=== PATIENT | female | born 1935 | race Caucasian/White ===

== ENCOUNTER 2016-11-09 12:09 | Inpatient (IN) | payer OTHER ==
[2016-11-09 16:08] LABS: % IMMATURE GRANULYOCYTES 0.2 % (0.0-1.1); ABSOLUTE IMMATURE GRANULOCYTES 0.02 10^3/uL (0.00-0.10); ADD DIFF? NO; ADD MORPH? NO; ADD SCAN? NO; ATYPICAL LYMPHOCYTE FLAG 10 (0-99); FRAGMENT RBC FLAG 0 (0-99); HEMATOCRIT 37.9 % (38.0-47.0); HEMOGLOBIN 13.3 g/dL (12.6-16.3); LEFT SHIFT FLG 0 (0-99); LIPEMIA HEMOLYSIS FLAG 90 (0-99); MEAN CELL HEMOGLOBIN 31.7 pg (27.9-34.1); MEAN CELL HEMOGLOBIN CONCENTR. 35.1 g/dL (32.4-36.7); MEAN CELL VOLUME 90.5 fL (81.5-99.8); MEAN PLATELET VOLUME 9.1 fL (8.7-11.7); PLATELET CLUMPS FLAG 40 (0-99); PLATELET COUNT 204 10^3/uL (150-400); RED BLOOD CELL COUNT 4.19 10^6/uL (4.18-5.33); RED CELL DISTRIBUTION WIDTH 12.7 % (11.5-15.2)
[2016-11-09 16:18] LABS: ALANINE AMINOTRANSFERASE 29 IU/L (9-52); ALBUMIN 4.1 g/dL (3.5-5.0); ALKALINE PHOSPHATASE 77 IU/L (38-126); ANION GAP 12 mEq/L (8-16); ASPARTATE AMINOTRANSFERASE 26 IU/L (14-46); BILIRUBIN,TOTAL 0.8 mg/dL (0.1-1.4); CALCIUM 9.1 mg/dL (8.5-10.4); CARBON DIOXIDE 19 mEq/l (22-31); CHLORIDE 97 mEq/L (97-110); CREATININE 0.8 mg/dL (0.6-1.0); GLOMERULAR FILTRATION RATE > 60; GLUCOSE 90 mg/dL (70-100); POTASSIUM 4.7 mEq/L (3.5-5.2); SODIUM 128 mEq/L (134-144); TOTAL PROTEIN 7.1 g/dL (6.3-8.2)
[2016-11-09] MEDS ORDERED: VANCOMYCIN PHARMACY TO DOSE MISC SCH (16:45)
[2016-11-09] MEDS: VANCOMYCIN HCL/NORMAL SALINE 250 ML IV SCH (16:51)
[2016-11-09] MEDS ORDERED: TRIAMCINOLONE 0.1% 15 GM CRTUBE TP PRN (18:21)
[2016-11-09] MEDS ORDERED: hydrOXYzine HCL 25 MG TAB PO PRN (18:23)
--- NOTE | 2016-11-09 18:53 | GHP ---
[f rep st] HISTORY AND PHYSICAL DATE OF ADMISSION: 11/09/2016 REASON FOR ADMISSION: Refractory cellulitis. HISTORY OR PRESENT ILLNESS: The patient is an 81-year-old female who presents with increasing redne ss and swelling of her leg. She was 1st seen in the office on the , followup on knee injury. S he had fallen. Was seen 5 days prior to that visit. She tripped down some steps outside of a theat er and cut open her knee. The laceration was cleansed and cured at urgent Care and she was placed i n knee immobilizer and an Levi bandage. On evaluation at time, the wound appeared to be well-healing . However, she did have some erythema around the edge of the laceration that was concerning for the possibility of infection. At that point in time, the knee immobilizer was taken off because it was irritating, and she was advised to use antiseptic ointment around the incision and she was placed o n Keflex 500 mg 3 times daily. She was seen back again four days later on the . At this point in time, the skin in front of the knee appeared to be slightly more red. The incision, however, did appear to be healed well and there was no fluid in the prepatellar bursa. There was concern that s he was having persistent cellulitis from a resistant organism. The Keflex was stopped. She was zaina dena on Bactrim DS, 1 twice daily. She returns the day of admission. As stated, the knee was slight ly better today than it was yesterday, but at this point in time the redness has spread down to her anterior feliz and there is swelling in her leg and foot. A duplex Doppler was performed in the [facility] to rule out DVT and this was negative. She is being admitted to the hospital for treatment of re fractory cellulitis post laceration with repair. REVIEW OF SYSTEMS: She has been also dealing with an itchy rash which has initially been diagnosed as dry skin but is clearly not the case. She has bumps and inflammation. She has been placed on cl obetasol cream without significant benefit. She states the itchy rash was slightly improved last ni ght, but she still has palpable bumps on her body. PAST MEDICAL HISTORY: Significant for annulare granuloma, atherosclerosis of coronary vessels which is stable, prior Ford's cyst of the right knee, glaucoma, hyperlipidemia, hypothyroidism, cataract left eye, primary insomnia, and irritable bowel syndrome. MEDICATIONS: Current medications are: 1. Bactrim DS twice daily. 2. Clobetasol ointment to skin twice daily. 3. Prednisone 1 mg daily. 4. Amitriptyline 25 mg, 2 at bed time. 5. Estradiol 1 mg daily. 6. Lisinopril 5 mg daily. 7. Simvastatin 20 mg daily. 8. Levothyroxine 75 mcg daily. 9. [place]-3, 4000 mg daily. 10. Vitamin D3, 4000 units daily. 11. Aspirin 81 mg daily. 12. Slo-Niacin 750 mg daily. PHYSICAL EXAM: GENERAL: Reveals a tired appearing, 81-year-old female who appears younger than her stated age. HEENT: Pupils equal, react to light. Throat was normal. SKIN: She has diffuse macu lopapular rash on her skin which is pruritic. She has a nicely healed incision over her left knee w ith significant swelling and redness down the front of the feliz. She has 1 to 2+ edema in her left leg. VITAL SIGNS: Blood pressure 123/57, pulse 74 and regular, respirations 14, oxygen saturation 94% on room air, temperature is 36.6. ABDOMEN: Nontender. EXTREMITIES: She moves all extremities well. IMPRESSION: Refractory cellulitis. PLAN: Will admit, place on IV vancomycin, obtain an infectious disease consultation, will observe wade harrington closely. /[id number]/MODL
[2016-11-09 19:49] VITALS: RESP 16
[2016-11-09] MEDS: ATORVASTATIN CALCIUM 10 MG TAB PO SCH (20:31)
[2016-11-09] MEDS: SULFAMETHOX/TMP 800/160 MG 1 TAB PO SCH (20:31)
[2016-11-09] MEDS: DORZOLAMIDE/TIMOLOL 10 ML OPHT.BTL EACHEYE SCH (20:32)
[2016-11-09] MEDS ORDERED: NON-FORMULARY NEW DRUG (Simvastatin [Zocor] 20 MG) PO SCH (21:00)
[2016-11-09] MEDS: LATANOPROST 0.005% 2.5 ML OPHT DROPS EACHEYE SCH (23:46)
[2016-11-10] MEDS: VANCOMYCIN HCL/NORMAL SALINE 250 ML IV SCH (03:54)
[2016-11-10] MEDS: LEVOTHYROXINE 75 MCG TAB PO SCH (05:16)
[2016-11-10] MEDS: SULFAMETHOX/TMP 800/160 MG 1 TAB PO SCH (08:30)
[2016-11-10] MEDS: ASPIRIN 81 MG CHEWABLE TAB PO SCH (08:30)
[2016-11-10] MEDS: ESTRADIOL 1 MG TAB PO SCH (08:30)
[2016-11-10] MEDS: predniSONE 1 MG TAB PO SCH (08:30)
[2016-11-10] MEDS: DORZOLAMIDE/TIMOLOL 10 ML OPHT.BTL EACHEYE SCH ×2 (08:31→21:52)
[2016-11-10] MEDS ORDERED: Herbals/Supplements -Info Only PO SCH (09:00)
[2016-11-10] MEDS ORDERED: VANCOMYCIN PHARMACY TO DOSE MISC SCH (09:00)
[2016-11-10] MEDS ORDERED: LISINOPRIL 5 MG TAB PO SCH ×2 (09:00→17:00)
[2016-11-10] MEDS ORDERED: ALTEPLASE 2 MG VIAL IVP PRN (09:05)
--- NOTE | 2016-11-10 09:08 | SOAPPROG ---
SOAP Progress Note Assessment/Plan: Assessment: Cellulitis, refractory to keflex and bactrim. Plan: Pharmacy to dose vancomycin, hpefully once a day. Home tomorrow after PICC placement today and dose of vanco prior to departure. 11/10/16 09:07 Subjective: Slept poorly, hates the bed!. Cellulitis is improved. Itching rash, which preceded cellulitis by many days, persists. Swelling is better. Redmess improved. Less warm. Objective: Vital Signs Temp Pulse Resp BP Pulse Ox 36.8 C 73 16 96/59 L 97 11/10/16 07:34 11/10/16 07:34 11/10/16 07:34 11/10/16 07:34 11/10/16 07:34 Laboratory Results 11/09/16 15:54 11/09/16 15:54 11/09/16 11/10/16 11/11/16 05:59 05:59 05:59 Intake Total 250 Balance 250 ICD10 Worksheet Patient Problems: Problems Problem Status Onset Cellulitis and abscess of leg Acute - ICD10 Problem Qualifiers (1) Cellulitis and abscess of leg
--- NOTE | 2016-11-10 12:45 | GCON ---
[f rep st] CONSULTATION INFECTIOUS DISEASES CONSULTATION DATE OF CONSULTATION: 11/10/2016 REFERRING PHYSICIAN: David Barbour MD REASON FOR CONSULTATION: Left lower extremity cellulitis. HISTORY OF PRESENT ILLNESS: The patient is an 81-year-old female with a past medical history of hyp erlipidemia, whom I am asked to see in consultation for a left lower extremity cellulitis. The lakisha ent sustained a fall approximately 2 weeks ago when she was walking down the stairs. She was seen a t [facility], and her laceration was irrigated and closed. Subsequently, she was seen in followup by Dr Helena Barbour and noted to have a small area of erythema around the laceration. She was started on cep halexin. She was seen again in followup, at which point in time there was noted to be slightly more prominent erythema, with the incision healing well without any notable bursal fluid or drainage. A t that time, she was started on Bactrim DS b.i.d. with concerns about potential for MRSA. On evalua tion yesterday, she was noted to have erythema that had spread down her anterior feliz toward her rob t. An ultrasound in the office did not show evidence of DVT. She describes having some chills, but no fevers. She did not note any erythema or streaking in her thigh. She has not had any noticeabl e inguinal lymph nodes or tenderness. Based on these findings, she was admitted to the hospital and started on vancomycin 1 g IV q.24 hours. Given the above findings, I am now asked to assist in her ongoing management. PAST MEDICAL HISTORY: Granuloma annulare, coronary artery disease, history of Ford cyst of the rig ht leg, glaucoma, hyperlipidemia, hypothyroidism, irritable bowel syndrome. PAST SURGICAL HISTORY: Hysterectomy, tonsillectomy, left knee arthroscopic surgery without hardware . CURRENT MEDICATIONS: Vancomycin 1 g IV q.24 hours, Bactrim DS b.i.d., prednisone 1 mg p.o. daily, l isinopril 5 mg p.o. daily, Synthroid 75 mcg p.o. daily, hydroxyzine as needed for itching, estradiol 1 mg p.o. daily, Cosopt eyedrops, Lipitor 10 mg p.o. q.h.s., aspirin 81 mg p.o. daily. ALLERGIES: Amoxicillin associated with diarrhea, which represents intolerance rather than allergy. SOCIAL HISTORY: Patient quit smoking many years ago. She drinks 2 alcoholic beverages daily. No a nimal exposure. FAMILY HISTORY: Coronary artery disease. REVIEW OF SYSTEMS: Outside that noted in the HPI, the remainder 10-system review was unremarkable. PHYSICAL EXAMINATION: VITAL SIGNS: Temperature 36.8, heart rate 73, respiratory rate 16, blood pre ssure 96/59, oxygen saturation 97% on room air. GENERAL: Patient is a thin female in no acute dist ress. She appears nontoxic. HEENT: There is no scleral icterus, conjunctival injection, or conjun ctival petechiae. The oropharynx is clear, without lesions. Mucous membranes are moist. There is resolving ecchymosis around the left eye. There is no tenderness over the frontal, maxillary, or ma stoid area. There is no nasal discharge. NECK: Supple, without lymphadenopathy or palpable thyrom egaly. CHEST: Clear to auscultation bilaterally, without adventitious sounds. The respiratory eff ort is normal. CARDIOVASCULAR: Regular rate and rhythm, without murmurs, gallops, or rubs. ABDOME N: Soft, nontender, nondistended. There is no palpable organomegaly. Bowel sounds are present. M USCULOSKELETAL: Left lower extremity shows a well-healed laceration below the knee. There is eryth manny surrounding the lower portion of the knee with extension to the ankle. There is warmth and tend erness present. There is a small palpable fluid collection below the incision, measuring approximat josh 3 cm in diameter. No bullae are present. No pain with range of motion of the knee itself. SKI N: See musculoskeletal; no stigmata of endocarditis. Skin is warm and dry to touch. LYMPHATICS: There are no cervical or supraclavicular nodes. There is no lymphangitis or inguinal adenopathy on the left. NEUROLOGIC: Patient is alert and interacts appropriately with examiner. Cranial nerves 2-12 are grossly intact. Sensation is grossly intact. Muscle tone and bulk are normal. LABORATORY DATA: White blood cell count 9.4, hematocrit 37.9, platelets 204, neutrophils 76%, serum creatinine 0.8, AST 26, ALT 29, bilirubin 0.8, alkaline phosphatase 77, albumin 4.1. Blood culture s x2 sets are pending. IMPRESSION: Left lower extremity cellulitis after traumatic laceration: Most likely, this will be due to Staphylococcus aureus or group A Streptococcus. She does have a small palpable fluid collect ion below laceration, which could represent small abscess or bland/infected hematoma. Will further assess this with localized ultrasound and have radiology aspiration performed if collection confirme d. This would help with diagnostic plan from an antibiotic standpoint and also may serve therapeuti c purpose. RECOMMENDATIONS: 1. Agree with empiric vancomycin 1 g IV daily. 2. Ultrasound to further assess fluid collection with aspiration if confirmed. 3. Cultures of fluid collection if aspiration possible. 4. Follow clinical response to above measures and creatinine over time while on vancomycin. Thank you for this consultation. We will continue to follow the patient with you. /[id number]/MODL
[2016-11-10] MEDS: LATANOPROST 0.005% 2.5 ML OPHT DROPS EACHEYE SCH (21:51)
[2016-11-10] MEDS: ATORVASTATIN CALCIUM 10 MG TAB PO SCH (21:52)
[2016-11-10 22:27] VITALS: O2SAT 95
[2016-11-11] MEDS: LEVOTHYROXINE 75 MCG TAB PO SCH (05:12)
[2016-11-11] MEDS ORDERED: VANCOMYCIN HCL/NORMAL SALINE 250 ML IV SCH (06:00)
[2016-11-11 06:01] LABS: ANION GAP 8 mEq/L (8-16); CALCIUM 8.6 mg/dL (8.5-10.4); CARBON DIOXIDE 21 mEq/l (22-31); CHLORIDE 99 mEq/L (97-110); CREATININE 0.7 mg/dL (0.6-1.0); GLOMERULAR FILTRATION RATE > 60; GLUCOSE 104 mg/dL (70-100); POTASSIUM 4.4 mEq/L (3.5-5.2); SODIUM 128 mEq/L (134-144)
[2016-11-11 07:56] VITALS: BP 102/51; PULSE 69; TEMP 98.4
[2016-11-11] MEDS: ASPIRIN 81 MG CHEWABLE TAB PO SCH (09:32)
[2016-11-11] MEDS: ESTRADIOL 1 MG TAB PO SCH (09:32)
[2016-11-11] MEDS: predniSONE 1 MG TAB PO SCH (09:32)
[2016-11-11] MEDS: DORZOLAMIDE/TIMOLOL 10 ML OPHT.BTL EACHEYE SCH (09:33)
--- NOTE | 2016-11-11 11:11 | SOAPPROG ---
SOAP Progress Note Assessment/Plan: Assessment: Plan: 11/11/16 11:11 LLE cellulitis: On IV vancomycin. PICC line placed yesterday. US ordered by Dr. Santiago showed no fluid collection, abscess. Blood cx without growth so far. Has received her dose vanco this morning. Per Dr. Barbour's note yesterday, pt possibly to go home today. She isn't feeling all that great, but isn't opposed to it. I will check in with Dr. Santiago as well. 11/11/16 11:18 Subjective: Feels ok, not great. No pain in her leg when lying in bed, but does have some when she is up. Objective: Vital Signs Temp Pulse Resp BP Pulse Ox 36.9 C 69 16 102/51 L 95 11/11/16 07:55 11/11/16 07:55 11/11/16 07:55 11/11/16 07:55 11/11/16 07:55 Laboratory Results 11/09/16 15:54 11/11/16 05:20 11/10/16 11/11/16 11/12/16 05:59 05:59 05:59 Intake Total 250 Balance 250 General: resting, NAD Neck: no masses, adenopathy Lungs: clear CV: RRR without murmur Extremities: LLL remains erythematous, mildly edematous. Not that tender to touch. ICD10 Worksheet Patient Problems: Problems Problem Status Onset Cellulitis and abscess of leg Acute
--- NOTE | 2016-11-11 12:33 | PCMIDPN ---
Assessment/Plan: Assessment/Plan: * Left lower extremity cellulitis after traumatic laceration: Ultrasound showed primarily phlegmonous changes below laceration. Clinical exam reveals this area still is fluctuant. The area was prepped sterilely with chlorhexidine and a 21 gauge needle was used to aspirate region yielding approximately 1 mL of old-appearing blood which will be sent for culture. No purulence noted. Patient tolerated well. Cellulitis overall remains stable without significant regression or extension. Plan to continue vancomycin. Will increase to 1.25 g IV daily. Think she can be discharged with continued outpatient follow-up. Will arrange follow-up in my office later this week. 11/11/16 12:29 11/11/16 12:36 Subjective: Patient with persistent pain below knee. No significant change in erythema. Objective: Vital Signs Temp Pulse Resp BP Pulse Ox 36.9 C 69 16 102/51 L 95 11/11/16 07:55 11/11/16 07:55 11/11/16 07:55 11/11/16 07:55 11/11/16 07:55 Laboratory Results 11/09/16 15:54 11/11/16 05:20 11/10/16 11/11/16 11/12/16 05:59 05:59 05:59 Intake Total 250 Balance 250 Vancomycin # 3 Blood cultures x2 no growth Ultrasound showing small phlegmonous change below knee Laboratory Tests 11/11/16 05:20 Vancomycin Trough < 5.0 L - Physical Exam General Appearance: alert, no apparent distress Extremities: inflammation (Erythema around knee and anterior feliz without significant change; edema has decreased somewhat; fluctuant area below laceration present; this is the area of most prominent tenderness; no bulla) Peripheral Pulses: 0: dorsalis-pedis (L) Lymphatic: other (No left lower extremity lymphangitis) ICD10 Worksheet Patient Problems: Problems Problem Status Onset Cellulitis and abscess of leg Acute
--- NOTE | 2016-11-11 12:39 | PDIAF ---
- Diagnosis Diagnosis: Left lower extremity cellulitis - Medication Management Discharge Medications: Medications to Continue on Transfer Aspirin [Aspirin 81mg (*)] 81 mg PO DAILY 11/09/16 [Last Taken Unknown] Dorzolamide/Timolol [Cosopt (*)] 1 drop EACHEYE BID 11/09/16 [Last Taken ] Estradiol [Estradiol] 1 mg PO DAILY 11/09/16 [Last Taken 11/09/16] Herbals/Supplements -Info Only 1 ea PO DAILY 11/09/16 [Last Taken Unknown] LISINOPRIL [LISINOPRIL] 5 mg PO DAILY@17 11/09/16 [Last Taken Unknown] Latanoprost [Latanoprost] 1 drop EACHEYE HS 11/09/16 [Last Taken Unknown] Levothyroxine [Synthroid 75 mcg (*)] 75 mcg PO DAILY06 11/09/16 [Last Taken ] MUPIROCIN [MUPIROCIN] 1 applic TP BID 11/09/16 [Last Taken Unknown] SIMVASTATIN [Zocor] 20 mg PO HS 11/09/16 [Last Taken Unknown] SULFAMETHOXAZOLE/TRIMETHOPRIM [BACTRIM DS TABLET] 1 tab PO BID 11/09/16 [Last Taken 11/09/16] Triamcinolone 0.1% [Triamcinolone 0.1% Cream (*)] 1 applic TP DAILY PRN [Last Taken Unknown] predniSONE [Prednisone] 1 mg PO DAILY 11/09/16 [Last Taken 11/09/16] Assisted Antibiotics: Vancomycin 1.25 g IV Q 24 hours Assisted Antibiotic Stop Date: 11/19/16 Discharge Medications: Refer to the Discharge Home Medication list for PRN reason. PICC Care - Routine: Yes - Labs/Radiology CBC Date: 11/13/16 (Weekly) CMP Date: 11/13/16 (Weekly) Creatinine Date: 11/15/16 Vanco Trough Date and Time: 11/13/2016 and 11/15/2016 Call or Fax Lab and Imaging Results to: Dr. Santiago, - Follow Up Care Current Providers and Referrals: David Barbour MD [Primary Care Provider] - Vini Santiago MD [Medical Doctor] - 11/15/16 1:00 pm
== END 2016-11-11 16:40 | disposition home or self-care (01) | DRG 603 ==
LOC: F3E 14:53 → OBSVTOIN 15:18
PROVIDERS: ADMIT Internal Medicine; ATTEND Internal Medicine
PROC: 02HV33Z Insertion of Infusion Device into Superior Vena Cava, Percutaneous Approach (ICD-10-PCS; principal; 2016-11-10)
DX: L03.116 Cellulitis of left lower limb (principal); E78.5 Hyperlipidemia, unspecified; I25.10 Atherosclerotic heart disease of native coronary artery without angina pectoris; E03.9 Hypothyroidism, unspecified; F51.01 Primary insomnia; K58.9 Irritable bowel syndrome, unspecified; L92.0 Granuloma annulare; H40.9 Unspecified glaucoma; M71.21 Synovial cyst of popliteal space [Baker], right knee
CPT/HCPCS: C1751; J3370

== ENCOUNTER 2016-12-04 16:35 | Inpatient (IN) | payer OTHER ==
[2016-12-04] MEDS ORDERED: D5W NS 1,000 ML IV SCH (17:15)
[2016-12-04 18:31] LABS: % IMMATURE GRANULYOCYTES 0.5 % (0.0-1.1); ABSOLUTE IMMATURE GRANULOCYTES 0.04 10^3/uL (0.00-0.10); ADD DIFF? NO; ADD MORPH? NO; ADD SCAN? NO; ATYPICAL LYMPHOCYTE FLAG 0 (0-99); FRAGMENT RBC FLAG 0 (0-99); HEMATOCRIT 36.8 % (38.0-47.0); HEMOGLOBIN 12.2 g/dL (12.6-16.3); LEFT SHIFT FLG 10 (0-99); LIPEMIA HEMOLYSIS FLAG 80 (0-99); MEAN CELL HEMOGLOBIN 30.6 pg (27.9-34.1); MEAN CELL HEMOGLOBIN CONCENTR. 33.2 g/dL (32.4-36.7); MEAN CELL VOLUME 92.2 fL (81.5-99.8); MEAN PLATELET VOLUME 8.9 fL (8.7-11.7); PLATELET CLUMPS FLAG 10 (0-99); PLATELET COUNT 235 10^3/uL (150-400); RED BLOOD CELL COUNT 3.99 10^6/uL (4.18-5.33); RED CELL DISTRIBUTION WIDTH 13.2 % (11.5-15.2)
[2016-12-04 18:59] LABS: SEDIMENTATION RATE 23 MM/HR (0-30)
[2016-12-04 19:10] LABS: ALANINE AMINOTRANSFERASE 25 IU/L (9-52); ALBUMIN 4.1 g/dL (3.5-5.0); ALKALINE PHOSPHATASE 84 IU/L (38-126); ANION GAP 11 mEq/L (8-16); ASPARTATE AMINOTRANSFERASE 19 IU/L (14-46); BILIRUBIN,TOTAL 0.8 mg/dL (0.1-1.4); C-REACTIVE PROTEIN 79.7 mg/L (<10.0); CALCIUM 9.4 mg/dL (8.5-10.4); CARBON DIOXIDE 25 mEq/l (22-31); CHLORIDE 100 mEq/L (97-110); CREATININE 0.6 mg/dL (0.6-1.0); GLOMERULAR FILTRATION RATE > 60; GLUCOSE 139 mg/dL (70-100); POTASSIUM 4.3 mEq/L (3.5-5.2); SODIUM 136 mEq/L (134-144); TOTAL PROTEIN 7.1 g/dL (6.3-8.2)
--- NOTE | 2016-12-04 21:32 | PDCONSULT ---
[employer] Note: Orthopaedic Consult Note DOS: 12/04/2016 CC: Left shoulder discomfort HPI: Ms Park is a RHD 81y woman with a history of recent L knee laceration complicated by infection now presenting with a Left shoulder effusion and increased pain for one week. She fell onto her Left knee 10/28/2016 and suffered a transverse laceration over the patella which was washed out at the bedside and sutured closed. She was placed into a knee immobilizer in which she has had some trouble and she twisted and fell onto her Left shoulder within the first week after the knee injury. The left shoulder pain improved somewhat. Her Left knee wound developed some early redness and she was placed on oral abx courses. Around 11/10/2016 she was admitted to the hospital to address a cellulitis overlying her knee. She was started on a vancomycin IV course. That course was discontinued one week ago. She did not have additional issues with her Left knee. However, since over a week ago, she has noted increased Left shoulder discomfort. For example, she was using her Right arm to hit the turn signal on the left side of the car. For the past 2 days, it has become increasingly difficult to move the Left shoulder, and yesterday she noted that the Left shoulder felt bigger than the Right. 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 No prior Left shoulder history of trauma. No numbness or weakness. PMHx: Includes hypothyroid, hyperlipidemia PSHx: Includes Hysterectomy Allergies: amoxicillin SocHx: lives without any local family. ROS: denies any changes from baseline for neuro, eyesight, hearing, skin ( except for healing L knee), GI, , cardiac, pulm. MSK as above PE: NAD, AxOX3 LUE: Mild effusion around Left shoulder. Mod TTP around shoulder joint. NO erythema. Mild edema. AROM: FF 20, Abd 20. PROM: 90 degrees FF and abduction. No pain with ER/IR. Patient able to push up body off of bed with BUE. 5/5 biceps/triceps/wrist ext/wrist flex/EPL/APB/FDS/FDP2,5/IO SILT A/R/U/M, 2+ rad pulse RUE: FROM R shoulder. 5/5 T/B/wrist Ext/wrist flex/EPL/APB/FDS/FDP2,5/IO. SILT. 2+ rad pulse LLE: healing L anterior knee lac with central scab. No effusion, FROM 0 to 90+ knee. small scab distal to knee cap. No erythema. Temp Pulse Resp BP Pulse Ox 36.6 C 75 16 147/76 H 93 12/04/16 17:45 12/04/16 20:00 12/04/16 20:00 12/04/16 20:00 12/04/16 20:00 afebrile WBC 8.64 ESR 23 CRP 79.7 XR: Left shoulder multiple views - not dislocated. No proximal humerus fracture seen. Obtained new aspirate (2cc) using anterior approach with aseptic technique. ( Negative tap approaching from posterior). Aspirate was somewhat cloudy but not thick purulence. Cell count: 41k, PMN 96% Crystals: None AP: 81y RHD F h/o L knee lac c/b cellulitis requiring IV abx course p/w ~1wk L shoulder pain, gradually worsening - Some concern for potential septic L shoulder. Has been off abx for ~1wk. - need to follow crystals, cell count and gram stain - Cell count below typical 50k threshold for septic joint, but heightened suspicion given knee infection and potential incomplete suppression before on non-selective abx - NPO - Plan for L shoulder I&D - Discussed risks (e.g. neurovascular injury, recurrence), benefits (e.g. decreased infectious load), and alternatives (e.g. nonop) with patient. She elected to proceed with L shoulder I&D.
[2016-12-04 21:43] LABS: WBC, SYNOVIAL FLUID 41026 /mm3 (0-150)
[2016-12-04 22:30] LABS: CRYSTALS, SYNOVIAL FLUID NONE SEEN (NONE SEEN)
[2016-12-04 23:04] LABS: COLOR YELLOW; LEUKOCYTE ESTERASE,URINE NEGATIVE (NEGATIVE); NITRITE,URINE NEGATIVE (NEGATIVE)
[2016-12-05] MEDS ORDERED: BUPIVACAINE 0.5% 30 ML SDV ONE (00:02)
[2016-12-05] MEDS ORDERED: BACITRACIN 50,000 UNITS/10 ML SYR IRR ONE (00:03)
[2016-12-05] MEDS ORDERED: POLYMYXIN B SULFATE 500,000 UNIT/10 ML SYR IRR ONE (00:03)
[2016-12-05] MEDS ORDERED: fentaNYL 100 MCG/2 ML INJ ONE ×2 (00:16→02:23)
[2016-12-05] MEDS ORDERED: PROPOFOL 200 MG/20 ML VIAL ONE (00:17)
[2016-12-05] MEDS ORDERED: BUPIVACAINE 0.25% 30 ML SDV ONE (02:07)
[2016-12-05] MEDS ORDERED: DEXAMETHASONE 4 MG/ML VIAL ONE (02:23)
[2016-12-05] MEDS ORDERED: LIDOCAINE 2% 5 ML SDV ONE (02:24)
[2016-12-05] MEDS ORDERED: ceFAZolin 1 GM VIAL ONE ×2 (02:32)
--- NOTE | 2016-12-05 03:36 | POSTOPPROG ---
Post Op Note Date of Operation: 12/05/16 Surgeon: Gregory Gann Field Inspector: None Anesthesia: LMA Pre-op Diagnosis: Left septic shoulder Post-op Diagnosis: Same Procedure: I&D Left Shoulder joint Inf/Abcess present in the surg proc area at time of surgery?: Yes Depth: Organ Space (Left glenohumeral joint) EBL: 100-500 (~100-150)
[2016-12-05] MEDS ORDERED: ACETAMINOPHEN 325 MG TAB PO PRN (03:54)
[2016-12-05] MEDS ORDERED: ONDANSETRON 4 MG/2 ML VIAL IVP PRN (03:54)
--- NOTE | 2016-12-05 03:54 | SUROPNOTE ---
[facility] Operative Report - Surgery Orthopaedic Surgery Op Note DOS: 12/05/2016 Attg: Gregory Gann Asst: None Preop Dx: Left Septic shoulder Postop Dx: Same Procedure: I&D Left glenohumeral joint Indication: 81yF w recent h/o L knee laceration c/b cellulitis treated with empiric vancomycin p/w L shoulder pain and aspirate with 41K WBC one week after discontinuing IV abx. Crystals negative per lab prelim report. Operative Report: The patient had been consented in her room after discussing risks, benefits, and potential complications. In the preop area she was marked and elected to proceed. In the OR, she was transferred to the bed and anesthesia was induced. She was placed in a supine position witha bone foam ramp under her left side to elevate that shoulder a little. A time out was performed confirming the surgical site, patient, and procedure. Antibiotics were held for after culture. The left shoulder was prepped and draped. A deltopectoral approach was performed starting with a longitudinal incision from just lateral to the coracoid angled to the humeral shaft distal to the surgical neck. The cephalic vein was identified, protected and taken laterally. The interval between the deltoid and pectoralis muscle was spread. The fascia by the conjoined tendon was split and a deltoid retractor placed behind the head. superficial bleeders were cauterized. A fluctuant mass was notable along the anterolateral aspect of the humeral head overlying the bicipetal groove. This was pierced and purulence emanated outward. This was cultured. Phlegmonous substance/pus was collected and also sent for culture. The redundant tissue was excised. The bicipetal groove was empty, suggesting the long head had ruptured at some previous point - perhaps with her shoulder injury - and the space was now filled with purulent tissue. The overlying tissue was split along the groove and exposed towards the glenohumeral joint until the joint was visible, but not going proximal enough to disturb the labrum. More purulence came from the joint, and this was swabbed as well. 6 L of normal saline were irrigated through the joint while the shoulder was manipulated and the joint surfaces directly agitated manually. Gloves were changed and fresh instruments selected. Satisfied with the irrigation and without any signs of additional purulence, the arthrotomy was closed with O PDS sutures. The fascia was approximated in several places with 2-O monocryl, which was also then used to close the subcutaneous tissue in a tight layer. 2-O nylon was used to close the skin. The shoulder was washed. Bacitracin ointment placed along the incision. Xeroform, gauze, and ABD were applied and secured with medipore tape. The drapes were then removed and a shoulder immobilizer placed on the patient. She was transferred to the bed, woken up, and taken to the PACU. COunts were correct at the conclusion of the case. I was present the entirety of the case. IMplants: None Complications: None EBL: ~100-150cc Drain: None
[2016-12-05] MEDS ORDERED: oxyCODONE IR 5 MG TAB PO PRN (04:01)
[2016-12-05] MEDS: DOCUSATE SODIUM 100 MG CAP PO SCH ×2 (08:24→20:36)
[2016-12-05] MEDS ORDERED: VANCOMYCIN HCL/NORMAL SALINE 250 ML IV ONE (08:28)
[2016-12-05] MEDS ORDERED: ESTRADIOL 1 MG TAB PO SCH (08:30)
[2016-12-05] MEDS ORDERED: Herbals/Supplements -Info Only PO SCH (09:00)
[2016-12-05] MEDS ORDERED: ENOXAPARIN 30 MG/0.3 ML SYR SC SCH (09:00)
--- NOTE | 2016-12-05 09:07 | GHP ---
[f rep st] HISTORY AND PHYSICAL DATE OF ADMISSION: 12/04/2016 REASON FOR ADMISSION: Probable septic left shoulder. HISTORY: The patient is an 81-year-old female, who has recently completed a course of antibiotics f or superficial infection of her left knee following a fall and laceration. During that infection sh e was initially placed on Keflex. The infection did not seem to respond. Subsequently placed on tr imethoprim sulfa, and finally placed on intravenous vancomycin. During the course of treatment ther e was requirement for drainage of a small abscess over the knee. Today she presented for followup i n the office with a complaint of a newly painful swollen left shoulder. Aspiration was made of the shoulder in the office and sheets of white blood cells were present on the aspirate. It was sent fo r culture and she is being admitted for further evaluation and treatment. 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 Hyperlipidemia, hypothyroidism, and a history of influenza reacti on that mimicked polymyalgia rheumatica. ALLERGIES: Influenza vaccine. She cannot take amoxicillin because of nausea and vomiting. CURRENT MEDICATIONS: Dalmane 50 mg h.s. p.r.n. sleep which she rarely uses. Prednisone 20 mg daily . Clobetasol ointment to her skin twice daily. Amitriptyline 25 mg 2 at bedtime. Estradiol 1 mg p .o. daily. Lisinopril 5 mg p.o. daily. Simvastatin 20 mg p.o. daily. Levothyroxine 75 mcg daily. [place]-3 4000 mg daily. Vitamin D3 4000 mg daily. Aspirin 81 mg daily. Slo-Niacin 750 mg daily. She has been complaining of a diffuse pruritic skin rash for over a month. The skin rash predated t he onset of the fall and the onset of the cellulitis of her knee. Today she presents with a painful swollen left shoulder, which is difficult to move because of the pain. She denies fever, chills, o r headaches, shortness of breath, wheezing, cough, congestion. She has no chest pain. No palpitati ons. No other joint symptoms. Her knee infection appears to be healing. PHYSICAL EXAM: VITAL SIGNS: Blood pressure 110/60, pulse 72, oxygen saturation 97% on room air, te mperature is 36.6 centigrade. GENERAL: She is alert, oriented, appropriate. HEENT: Pupils equal, react to light. SKIN: She has a mild skin rash with some excoriations on her shoulders. HEART: Has a regular rate and rhythm without audible murmur. ABDOMEN: Nontender. EXTREMITIES: She has n o peripheral edema. The left shoulder is significantly swollen and tense of the area of infection. Prior infection of the left knee appears to be healing well with significant dusky discoloration re maining. The area of the shoulder was cleansed with Betadine. Anesthetized with 1% lidocaine with adrenaline , and a small aspirate of about 5 cc of purulent material was removed. It was observed on wet prep and found to have sheets of white blood cells with what appeared to be occasional bacteria. She is being admitted to the hospital for further evaluation and treatment. /[id number]/MODL
[2016-12-05] MEDS: predniSONE 10 MG TAB PO SCH (09:57)
[2016-12-05] MEDS: PRESERVISION AREDS2 FORMULA EYE VIT 1 EACH PO SCH (09:57)
[2016-12-05] MEDS: DORZOLAMIDE/TIMOLOL 10 ML OPHT.BTL EACHEYE SCH ×2 (09:58→20:36)
[2016-12-05] MEDS: ceFAZolin 2 GM/DEXTROSE 100 ML IV SCH ×2 (09:58→17:30)
[2016-12-05] MEDS: LEVOTHYROXINE 75 MCG TAB PO SCH (10:04)
--- NOTE | 2016-12-05 13:11 | SOAPPROG ---
SOAP Progress Note Assessment/Plan: Assessment:Probable septic shoulder Plan:ID consult pending. Await cultures. Will empirically cover with vancomycin pending results of cultures. 12/05/16 13:10 Subjective: Doing well post op. She enjoys improved ROM of L shoulder. Objective: Vital Signs Temp Pulse Resp BP Pulse Ox 36.8 C 80 16 144/71 H 96 12/05/16 11:35 12/05/16 11:35 12/05/16 11:35 12/05/16 11:35 12/05/16 11:35 Microbiology 12/04/16 20:15 Gram Stain - Final Synovial Fluid - Aspirate Laboratory Results 12/04/16 Unknown 12/04/16 Unknown 12/04/16 12/05/16 12/06/16 05:59 05:59 05:59 Intake Total 800 Output Total 850 450 Balance -50 -450 Cultures pending. Lungs clear. COR RRR. Afebrile. NO edema. ICD10 Worksheet Patient Problems: Problems Problem Status Onset Cellulitis and abscess of leg Acute
--- NOTE | 2016-12-05 13:58 | SOAPPROG ---
SOAP Progress Note Assessment/Plan: Assessment: 81y F p/w L septic shoulder POD#1 I&D L shoulder Plan: - NWB LUE - Pendulums fine for next two weeks - Keep dressing intact and dry. do not change unless soiled or concern for wound - Pain control per primary service. Typically tylenol baseline and PRN narcotic sufficient - Sling for comfort - come out of sling TID for elbow ROM - Return to clinic in two weeks for wound check and potential suture removal - Call [phone] to make appointment - Appreciate Dr. Still's care - IV abx per ID/Primary service - Call if ? 12/05/16 13:55 12/05/16 13:59 Subjective: Pain controlled. worked with OT this AM Objective: Vital Signs Temp Pulse Resp BP Pulse Ox 36.8 C 80 16 144/71 H 96 12/05/16 11:35 12/05/16 11:35 12/05/16 11:35 12/05/16 11:35 12/05/16 11:35 Microbiology 12/04/16 20:15 Gram Stain - Final Synovial Fluid - Aspirate Laboratory Results 12/04/16 Unknown 12/04/16 Unknown 12/04/16 12/05/16 12/06/16 05:59 05:59 05:59 Intake Total 800 Output Total 850 450 Balance -50 -450 SILT A/R/U/M, WWP LUE, CDI dressing, moving wrist/hand well Still awaiting culture results from intraop tissue ICD10 Worksheet Patient Problems: Problems Problem Status Onset Cellulitis and abscess of leg Acute
--- NOTE | 2016-12-05 20:00 | GCON ---
[f rep st] CONSULTATION INFECTIOUS DISEASE CONSULTATION. DATE OF CONSULTATION: 12/05/2016 REFERRING PHYSICIAN: David Barbour MD REASON FOR CONSULTATION: Left septic arthritis. HISTORY OF PRESENT ILLNESS: An 81-year-old woman who is known to the Infectious Disease service for recent left lower extremity cellulitis and abscess first seen by my partner on 11/10/2016 in the [facility]. She was evaluated for left lower extremity cellulitis following traumatic laceration. Fluc tuance evolved over the left tibial tuberosity and Dr. Santiago aspirated the fluid on November 11 with cu ltures showing 4+ P acnes. Further, Dr. Torres was consulted and patient underwent I and D of this a manpreet on the , but those cultures are no growth today. The patient received IV vancomycin starting on November 10 through approximately the . She has be en off antibiotics for 10 days and starting approximately December 01 noticed that she was using her left arm less because of increasing pain. She actually reports that her shoulder has been bothering her a bit since early November when she twisted her shoulder when she was adjusting her left boot. Sh e denies any fevers and chills. She also started to notice, most recently, swelling at the site of her shoulder and requested an ear lier appointment with Dr. Barbour. She was seen in his clinic on the and he arranged for subs equent washout in the operating room 3 o'clock this morning. Aspiration of the left joint showed 41 ,000 WBCs with no crystals. Purulent material was noted in the operating room and cultures were obt ained. Gram stains were negative. Patient was empirically started on Ancef and given 1 dose of van comycin. She reports postoperatively that her pain is much improved on her left shoulder. The shelly ent is hopeful for discharge tomorrow. 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 PAST SURGICAL HISTORY: Hysterectomy, tonsillectomy, left arthroscopic knee surgery without hardware . SOCIAL HISTORY: Remote history of tobacco, occasional alcohol. Denies animal exposure or recent in ternational travel. She is originally from [place]. 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 She is a . FAMILY HISTORY: Positive for coronary artery disease. ALLERGIES: Amoxicillin is associated with diarrhea. She has not had any diarrhea with any of the a ntibiotics we have given her to date. MEDICATIONS: Cefazolin 2 grams IV q.8 x3 doses, aspirin, Colace, Lovenox, estradiol 1 mg daily, Syn throid 75 mcg daily, lisinopril 5 mg daily, multivitamin, Zofran, prednisone 10 mg daily and oxycodo ne. REVIEW OF SYSTEMS: A complete 10-point review of systems was performed and is negative, except as m entioned in the HPI. PHYSICAL EXAM: VITAL SIGNS: Blood pressure 133/75, heart rate 75, respiratory rate 16, saturation 93% on room air, temperature 36.7. She has been afebrile throughout her hospital course. GENERAL: This is a very pleasant, well-spoken woman in no acute distress. HEENT: Pupils are reactive bilat erally. Oropharynx: Moist mucous membranes. NECK: Supple. No lymphadenopathy. CARDIOVASCULAR: Regular rate. She had a late systolic murmur with a click. LUNGS: Clear bilaterally. ABDOMEN: Soft, nontender. Bowel sounds are present. LEFT ARM: Her dressing is in place in the shoulder reg ion and her arm is slightly swollen. No evidence of cellulitis outside of the dressing. LOWER EXTR EMITIES: No edema. Her left lower extremity is without erythema. She has a nearly healed scab on her left knee. NEUROLOGIC: She is alert and oriented x4 with fluent speech. LABORATORY: Synovial fluid: WBC 41,000, RBCs 80,000, 96% neutrophils. No crystals. White count 8 .4, hematocrit 36, platelets of 235, 85% neutrophils. ESR 23. CRP 79, creatinine 0.6. AST 19, ALT 25. Urinalysis was negative. Blood cultures from December 04 and multiple samples from the operati ng room are all pending. Gram stains were negative. ASSESSMENT AND PLAN: This is an 81-year-old woman with recent left lower extremity cellulitis and a bscess following traumatic event now with left shoulder septic arthritis. Unclear unifying diagnosi s here: Certainly the patient could have been bacteremic and, prior to surgical washout on the , she did have antibiotic therapy. She also had antibiotic therapy prior to bedside aspirate on l . P acnes would be an odd organism to cause bacteremia and joint infection at two sites. Shelly ent without specific history of MRSA in the past. Primary pathogens of interest for both left lower extremity cellulitis and septic arthritis of the left shoulder include Streptococcus and Staphyloco ccus. Today patient received both cefazolin and IV vancomycin. 1. Septic arthritis of the left shoulder. 2. Resolved left lower extremity cellulitis and abscess. RECOMMENDATIONS: 1. The patient already received antibiotics today. Starting tomorrow we will start on ceftriaxone 2 grams IV daily and continue to follow cultures. Ideally we will await blood cultures being negati ve 48 hours prior to placing PICC line. 2. Noted late systolic murmur on exam. Will assess with other providers if this was present previo usly. May need to consider echo. 3. Monitor blood cultures. 4. Reviewed necessity to replace PICC line and a minimum of 2-4 weeks of IV antibiotics for septic arthritis of the left shoulder. Coordinated care with case management director. Thank you for this consultation. We will continue to follow on a daily basis. /[id number]/MODL
[2016-12-05] MEDS: ASPIRIN 81 MG CHEWABLE TAB PO SCH (20:36)
[2016-12-05] MEDS: ATORVASTATIN CALCIUM 10 MG TAB PO SCH (20:36)
[2016-12-05] MEDS: LATANOPROST 0.005% 2.5 ML OPHT DROPS RTEYE SCH (20:36)
[2016-12-05] MEDS: LISINOPRIL 5 MG TAB PO SCH (20:36)
[2016-12-06] MEDS: LEVOTHYROXINE 75 MCG TAB PO SCH (05:16)
[2016-12-06] MEDS: cefTRIAXone 2 GM in D5W 50 ML IV SCH ×2 (09:06→10:03)
[2016-12-06] MEDS ORDERED: ALPRAZolam 1 MG TAB PO PRN (09:33)
--- NOTE | 2016-12-06 09:38 | SOAPPROG ---
SOAP Progress Note Assessment/Plan: Assessment: 81 yo female POD 2 for septic L shoulder, recent cellulitis/abscess LLE -Appreciate ortho service - in sling, dressing in place, having a bit more discomfort than yesterday but hasn't been taking much for pain mngt, encouraged to ask for prn meds, ice. -awaiting bcx and shoulder fluid cx's, appreciate ID input, is on ceftriaxone 2 gm per their orders, awaiting at least 48 hr neg cultures prior to considering PICC, have ordered echo for today. -dvt proph - lovenox -insomnia - takes dalmane prn at home, will write for alprazolam for tonight if needed (reports lorazepam lasts too long) -dispo - pending bcx, shoulder cx, echo, picc ultimately. Plan: 12/06/16 09:35 12/06/16 09:40 Subjective: Doing ok, feeling frustrated and down today Objective: Vital Signs Temp Pulse Resp BP Pulse Ox 36.6 C 68 12 120/64 96 12/06/16 08:00 12/06/16 08:00 12/06/16 08:00 12/06/16 08:00 12/06/16 08:00 Microbiology 12/05/16 02:28 Gram Stain - Final Shoulder - Tissue 12/04/16 20:15 Gram Stain - Final Synovial Fluid - Aspirate 12/05/16 02:28 Gram Stain - Final Shoulder - Eswab 12/05/16 02:28 Gram Stain - Final Shoulder - Eswab Laboratory Results 12/04/16 Unknown 12/04/16 Unknown 12/05/16 12/06/16 12/07/16 05:59 05:59 05:59 Intake Total 800 450 Output Total 850 950 Balance -50 -500 Gen: flat affect, A&O Heent; perr, eomi NEck: soft supple, some bruising L neck from surgery L shoulder in a sling, dressing in place, no erythema along borders of dressing Chest; cta b CV: rrr nl s1 s2 soft 1-2sem Abd: soft nt nd Ext: no s/sx of cellulits LLE but w/ edema of feet ICD10 Worksheet Patient Problems: Problems Problem Status Onset Cellulitis and abscess of leg Acute
[2016-12-06] MEDS ORDERED: ALPRAZolam 0.5 MG TAB PO PRN (09:48)
[2016-12-06] MEDS: DORZOLAMIDE/TIMOLOL 10 ML OPHT.BTL EACHEYE SCH ×2 (10:07→20:17)
--- NOTE | 2016-12-06 10:35 | PCMIDPN ---
Assessment/Plan: Assessment: L shoulder arthritis with approx 40 K WBCs on the heels of a tibial plateau laceration and p. acnes prepatellar bursitis 4-6 weeks ago. Cultures of aspiration and operative cultures not revealing of any microbial pathogen. Discussed case with Dr. Tinoco in pathology and asked for another crystal study on her joint fluid to be prepared and evaluated. Review of this shows abundant variably polarized material that is not consistent with CPPD crystals or gout but is atypical for contamination. Probably this substance is the cause of the inflammation in light of negative culture findings. Currently on ceftriaxone empirically. Will discuss with colleagues and primary service, but would recommend discontinuation of abx. Plan: 1) Continue ceftriaxone for now. 2) D/W services about discontinuation of empiric therapy. Subjective: Patient resting in her bed in her hospital room. L shoulder still quite uncomfortable. No fevers. Objective: ceftriaxone #2 Vital Signs Temp Pulse Resp BP Pulse Ox 36.6 C 68 12 120/64 96 12/06/16 08:00 12/06/16 08:00 12/06/16 08:00 12/06/16 08:00 12/06/16 08:00 Microbiology 12/05/16 02:28 Gram Stain - Final Shoulder - Tissue 12/04/16 20:15 Gram Stain - Final Synovial Fluid - Aspirate 12/05/16 02:28 Gram Stain - Final Shoulder - Eswab 12/05/16 02:28 Gram Stain - Final Shoulder - Eswab Laboratory Results 12/04/16 Unknown 12/04/16 Unknown 12/05/16 12/06/16 12/07/16 05:59 05:59 05:59 Intake Total 800 450 Output Total 850 950 Balance -50 -500 ESR 23 MM/HR (0-30) 12/04/16 Unknown C-Reactive Protein 79.7 mg/L (<10.0) H 12/04/16 Unknown - Physical Exam General Appearance: WD/WN, alert, no apparent distress, non-toxic Respiratory: lungs clear, normal breath sounds, No respiratory distress Cardiac/Chest: regular rate, rhythm, No tachycardia Skin: normal color, warm/dry, No rash Neuro/Psych: alert, normal mood/affect, oriented x 3 ICD10 Worksheet Patient Problems: Problems Problem Status Onset Cellulitis and abscess of leg Acute
[2016-12-06] MEDS: ENOXAPARIN 40 MG/0.4 ML SYR SC SCH (11:14)
[2016-12-06] MEDS: PRESERVISION AREDS2 FORMULA EYE VIT 1 EACH PO SCH (11:15)
[2016-12-06] MEDS: predniSONE 10 MG TAB PO SCH (11:15)
[2016-12-06] MEDS: DOCUSATE SODIUM 100 MG CAP PO SCH ×2 (11:15→20:00)
[2016-12-06 16:07] VITALS: O2SAT 95
--- NOTE | 2016-12-06 16:26 | ECHO ---
[id number] + + [address] : : [place] [address] : : [phone] + + Adult Echocardiographic Report + -----+ :Name: SHITAL PRATT FStudy Date: 12/06/2016 02:46 PM : : Hospital Admission Number: [id number] Location : 346: :: 1935 Gender: Female Height: 66 in : :Age: 81 yrs Race: WH Weight: 130 lb : :Reason For Study: Eval LV Fx : : BSA: 1.7 meters2 : :History: Murmur, L Shoulder debridement : + -----+ MMode/2D Measurements \T\ Calculations IVSd: 0.84 cm LVIDd: 4.2 cm FS: 38.7 % Ao root diam: 2.4 cm LVPWd: 0.89 cm LVIDs: 2.6 cm EDV(Teich): 77.7 ml ACS: 1.6 cm ESV(Teich): 23.7 ml EF(Teich): 69.5 % Normal Measurement Values: + + :LVIDd (3.5-5.7cm) IVSd (0.6-1.1cm) LVPWd (0.6-1.1cm) Aortic Root (2.0-3.7cm)Left Atrium (1.5-4.0cm): :LV Vol(d) (76-115ml) LV Vol(s) (29-48ml) Ejec Fraction (50-65%)PV Kilo (0.6- 1.2m/s) TV Kilo (0.4-1.0m/s) : :MV E Kilo (0.8-1.0m/s)MV A Kilo (0.3-1.0m/s)LVOT Kilo (0.7-1.2m/s) Asc Ao Kilo ( 0.9-1.8m/s) : + + Doppler Measurements \T\ Calculations MV E max kilo: Ao V2 max: LV V1 max: PA V2 max: 88.4 cm/sec 126.2 cm/sec 69.1 cm/sec 69.2 cm/sec MV A max kilo: Ao max P.4 mmHgLV V1 max PG: PA max P.6 cm/sec 1.9 mmHg 1.9 mmHg MV E/A: 1.2 TR max kilo: 192.7 cm/sec TR max P.9 mmHg RAP systole: 5.0 mmHg RVSP(TR): 19.9 mmHg Left Ventricle The left ventricle is normal in size. There is normal left ventricular wall thickness. The left ventricular ejection fraction is normal. There is Doppler evidence for diastolic dysfunction. Ejection Fraction = 69%. The left ventricular wall motion is normal. Right Ventricle The right ventricle is normal in size and function. Atria The left atrial size is normal. Mitral Valve The mitral valve is normal. There is no mitral valve stenosis. There is mild mitral regurgitation. Tricuspid Valve Normal tricuspid valve. There is trace tricuspid regurgitation. Right ventricular systolic pressure is normal. Aortic Valve The aortic valve is trileaflet. There is no aortic stenosis. Trace aortic regurgitation. Pulmonic Valve The pulmonic valve is normal in structure and function. There is no pulmonic valvular regurgitation. Great Vessels The aortic root is normal size. Pericardium/Pleural There is no pericardial effusion. Conclusion A complete two-dimensional transthoracic echocardiogram was performed (2D, M-mode, Doppler and color flow Doppler). The left ventricle is normal in size. There is normal left ventricular wall thickness. The left ventricular ejection fraction is normal. There is Doppler evidence for diastolic dysfunction. Ejection Fraction = 69%. The left ventricular wall motion is normal. The right ventricle is normal in size and function. The left atrial size is normal. The mitral valve is normal. There is mild mitral regurgitation. There is trace tricuspid regurgitation. Right ventricular systolic pressure is normal. The aortic valve is trileaflet. Trace aortic regurgitation. There is no pericardial effusion. Final Reading Physician: Vianey Lucas signed on 12/06/2016 04:24 PM Ordering Physician: Sandra Bailey Performed By: Narayan Lamb, ECHOCS
[2016-12-06] MEDS: ASPIRIN 81 MG CHEWABLE TAB PO SCH (20:17)
[2016-12-06] MEDS: LISINOPRIL 5 MG TAB PO SCH (20:17)
[2016-12-06] MEDS: ATORVASTATIN CALCIUM 10 MG TAB PO SCH (20:17)
[2016-12-06] MEDS: LATANOPROST 0.005% 2.5 ML OPHT DROPS RTEYE SCH (20:17)
[2016-12-07 00:39] VITALS: RESP 16
[2016-12-07] MEDS: LEVOTHYROXINE 75 MCG TAB PO SCH (05:05)
[2016-12-07 07:29] VITALS: BP 129/65; PULSE 70; TEMP 98.2
[2016-12-07] MEDS: predniSONE 10 MG TAB PO SCH (09:50)
[2016-12-07] MEDS: cefTRIAXone 2 GM in D5W 50 ML IV SCH (09:50)
[2016-12-07] MEDS: PRESERVISION AREDS2 FORMULA EYE VIT 1 EACH PO SCH (09:50)
[2016-12-07] MEDS: ENOXAPARIN 40 MG/0.4 ML SYR SC SCH (09:50)
--- NOTE | 2016-12-07 09:54 | PCMIDPN ---
Assessment/Plan: Inflammatory arthropathy L shoulder, initially concern for septic arthritis, but re-eval fluid by path shows possible crystals. Cultures negative to date, making infection less likely. She was off antibiotics for >10 days when shoulder aspirates obtained therefore false negative results unlikely. AF throughout entire illness. Nl wbc with slight L shift. --dc off antibiotics and follow cultures --discussed with Dr. Burnett and Dr Gann. Subjective: shoulder pain continues to be better than pre-op Objective: Vital Signs Temp Pulse Resp BP Pulse Ox 36.8 C 70 16 129/65 H 95 12/07/16 07:28 12/07/16 07:28 12/07/16 07:28 12/07/16 07:28 12/07/16 07:28 Microbiology 12/04/16 20:15 Gram Stain - Final Synovial Fluid - Aspirate 12/05/16 02:28 Gram Stain - Final Shoulder - Eswab 12/05/16 02:28 Gram Stain - Final Shoulder - Tissue 12/05/16 02:28 Gram Stain - Final Shoulder - Eswab Laboratory Results 12/04/16 Unknown 12/04/16 Unknown 12/06/16 12/07/16 12/08/16 05:59 05:59 05:59 Intake Total 450 200 Output Total 950 500 Balance -500 -300 ESR 23 MM/HR (0-30) 12/04/16 Unknown C-Reactive Protein 79.7 mg/L (<10.0) H 12/04/16 Unknown - Physical Exam General Appearance: alert, no apparent distress Respiratory: No accessory muscle use Extremities: other (dressing in place L shoulder) Skin: No rash Neuro/Psych: alert, normal mood/affect, oriented x 3 - Time Spent With Patient Time Spent with Patient: greater than 25 minutes (coordination of care with primary team and ortho) Time Spent with Patient: Greater than 25 minutes spent on this patients care, greater than 50% of time spent counseling, educating, and coordinating care regarding the above mentioned plan. ICD10 Worksheet Patient Problems: Problems Problem Status Onset Cellulitis and abscess of leg Acute
[2016-12-07] MEDS: DORZOLAMIDE/TIMOLOL 10 ML OPHT.BTL EACHEYE SCH (10:03)
[2016-12-07] MEDS: DOCUSATE SODIUM 100 MG CAP PO SCH (10:03)
[2016-12-07 10:46] LABS: % IMMATURE GRANULYOCYTES 0.4 % (0.0-1.1); ABSOLUTE IMMATURE GRANULOCYTES 0.03 10^3/uL (0.00-0.10); ADD DIFF? NO; ADD MORPH? NO; ADD SCAN? NO; ATYPICAL LYMPHOCYTE FLAG 30 (0-99); FRAGMENT RBC FLAG 0 (0-99); HEMATOCRIT 34.4 % (38.0-47.0); HEMOGLOBIN 11.4 g/dL (12.6-16.3); LEFT SHIFT FLG 0 (0-99); LIPEMIA HEMOLYSIS FLAG 80 (0-99); MEAN CELL HEMOGLOBIN 30.7 pg (27.9-34.1); MEAN CELL HEMOGLOBIN CONCENTR. 33.1 g/dL (32.4-36.7); MEAN CELL VOLUME 92.7 fL (81.5-99.8); MEAN PLATELET VOLUME 8.4 fL (8.7-11.7); PLATELET CLUMPS FLAG 0 (0-99); PLATELET COUNT 187 10^3/uL (150-400); RED BLOOD CELL COUNT 3.71 10^6/uL (4.18-5.33); RED CELL DISTRIBUTION WIDTH 13.2 % (11.5-15.2)
--- NOTE | 2016-12-07 12:11 | SOAPPROG ---
SOAP Progress Note Assessment/Plan: Assessment:Possible septic shoulder, based on culture results, ID feels it is sam arthropathy. Plan:ID DC to home without antibiotics and follow patient closely. 12/05/16 13:10 12/07/16 12:10 Subjective: Shoulder without pain. Reviewed results with ID. They feel that this is a sam arthropathy. Will treat with prednisone 10 mg daily and follow up closely. Reconsider diagnosis if symptoms recur. Objective: Vital Signs Temp Pulse Resp BP Pulse Ox 36.8 C 70 16 129/65 H 95 12/07/16 07:28 12/07/16 07:28 12/07/16 07:28 12/07/16 07:28 12/07/16 07:28 Microbiology 12/04/16 20:15 Gram Stain - Final Synovial Fluid - Aspirate 12/05/16 02:28 Gram Stain - Final Shoulder - Eswab 12/05/16 02:28 Gram Stain - Final Shoulder - Tissue 12/05/16 02:28 Gram Stain - Final Shoulder - Eswab Laboratory Results 12/07/16 10:36 12/04/16 Unknown 12/06/16 12/07/16 12/08/16 05:59 05:59 05:59 Intake Total 450 200 Output Total 950 500 Balance -500 -300 ICD10 Worksheet Patient Problems: Problems Problem Status Onset Cellulitis and abscess of leg Acute
--- NOTE | 2016-12-07 12:45 | GDS ---
[f rep st] DISCHARGE SUMMARY ADMISSION DIAGNOSIS: Septic arthritis. DISCHARGE DIAGNOSIS: Crystal arthritis, left shoulder. PROCEDURES: Shoulder aspiration, surgical washout of the shoulder. COMPLICATIONS: None. HOSPITAL COURSE: Patient was admitted with a swollen, painful left shoulder, with over 40,000 white blood cells per high-power field. Because of the assumption of a septic arthritis, she has taken o perating room, where the shoulder was cleaned out of purulent-like material. However, aspiration th at was done in my office, as well as the specimen sent from the operating room, had no growth. Infe ctious disease consultation was obtained. She was placed on ceftriaxone, but after the 3rd day of n o growth it was determined that this was likely a crystalline arthropathy despite the absence of cry stals in the aspirate. She is being discharged with that diagnosis, with close observation for any recurrence of the swelling or pain. MEDICATION AT TIME OF DISCHARGE: 1. Simvastatin 20 mg daily. 2. Prednisone 21 mg daily. 3. Lisinopril 5 mg h.s. 4. Levothyroxine 75 mcg daily. 5. Multiple vitamins. 6. Latanoprost 0.005% one drop right eye h.s. 7. Herbal supplements. 8. Estradiol 1 mg daily. 9. Cosopt 1 drop each eye twice daily. 10. Aspirin 81 mg h.s. DISCHARGE INSTRUCTIONS: She will follow up with me early next week. /[id number]/MODL
== END 2016-12-07 14:10 | disposition home or self-care (01) | DRG 554 ==
LOC: F3N 17:34 → PREOBSVTOIN 17:40
PROVIDERS: ADMIT Internal Medicine; ATTEND Internal Medicine
PROC: 0R9K3ZX Drainage of Left Shoulder Joint, Percutaneous Approach, Diagnostic (ICD-10-PCS; 2016-12-04)
PROC: 3E1U38Z Irrigation of Joints using Irrigating Substance, Percutaneous Approach (ICD-10-PCS; principal; 2016-12-05)
DX: M11.812 Other specified crystal arthropathies, left shoulder (principal); E78.5 Hyperlipidemia, unspecified; E03.9 Hypothyroidism, unspecified
CPT/HCPCS: 97116-GP; 97162-GP; 97165-GO; 97530-GO; 97535-GO; G8978-GP-CI; G8979-GP-CI; G8980-GP-CI; G8987-GO-CI; G8988-GO-CI; J0690; J0696; J1100; J1650; J2704; J3010; J3370

== ENCOUNTER → 2017-01-24 | Outpatient (CLI) | payer OTHER | LOC: FIMAGING 11:07 | PROVIDERS: ATTEND Internal Medicine | DX: M54.5 Low back pain (principal); M79.604 Pain in right leg; M79.605 Pain in left leg; M51.36 Other intervertebral disc degeneration, lumbar region; M51.37 Other intervertebral disc degeneration, lumbosacral region; M43.17 Spondylolisthesis, lumbosacral region ==

== ENCOUNTER → 2017-07-25 | Outpatient (CLI) | payer OTHER | LOC: FIMAGING 11:45 | PROVIDERS: ATTEND Internal Medicine | DX: Z12.31 Encounter for screening mammogram for malignant neoplasm of breast (principal) | CPT/HCPCS: G0202 ==

== ENCOUNTER → 2018-08-26 | Outpatient (CLI) | payer OTHER | LOC: FIMAGING 10:03 | PROVIDERS: ATTEND Internal Medicine | DX: Z13.21 Encounter for screening for nutritional disorder (principal); Z13.820 Encounter for screening for osteoporosis; M85.89 Other specified disorders of bone density and structure, multiple sites; Z78.0 Asymptomatic menopausal state ==

== ENCOUNTER → 2018-12-08 | Outpatient (CLI) | payer OTHER | LOC: FIMAGING 11:48 | PROVIDERS: ATTEND Orthopaedic Surgery | DX: M17.12 Unilateral primary osteoarthritis, left knee (principal) ==

== ENCOUNTER 2018-12-24 08:56 | Inpatient (IN) | payer OTHER ==
--- NOTE | 2018-12-24 06:05 | PDHPUP ---
History & Physical Update H&P update statement: This history and physical update is based on an assessment of the patient which was completed after admission or registration (within 24 hours), but prior to the surgery/procedure. H&P update: H&P reviewed & patient examined, no change in patient's condition since H&P completed
[~2018-12-24 08:56] MED LIST: ROPIVACAINE 0.2% 80 MG, EPINEPHrine 0.2 MG, KETOROLAC TROMETHAMINE 30 MG in SYRINGE 0 ML IU ONE; TRANEXAMIC ACID 3,000 MG in NS (SYRINGE) 50 ML IRR ONE
[2018-12-24] MEDS ORDERED: TRANEXAMIC ACID 3,000 MG/50 ML BAG IRR ONE (09:45)
[2018-12-24] MEDS ORDERED: FAMOTIDINE 20 MG TAB PO ONE (09:55)
[2018-12-24] MEDS ORDERED: ceFAZolin 2 GM/DEXTROSE 100 ML IV ONE (09:55)
[2018-12-24] MEDS ORDERED: LR 1,000 ML IV ONE (09:56)
[2018-12-24] MEDS ORDERED: LIDOCAINE 1% 2 ML INJ ID PRN (09:56)
--- NOTE | 2018-12-24 09:56 | PDANEPAE ---
ANE History of Present Illness Left TKA. ANE Past Medical History - Cardiovascular History Hx Hypertension: No Hx Arrhythmias: No Hx Chest Pain: No Hx Coronary Artery / Peripheral Vascular Disease: No Hx CHF / Valvular Disease: No Hx Palpitations: No - Pulmonary History Hx COPD: No Hx Asthma/Reactive Airway Disease: No Hx Recent Upper Respiratory Infection: No Hx Oxygen in Use at Home: No Hx Sleep Apnea: No Sleep Apnea Screening Result - Last Documented: Negative - Neurologic History Hx Cerebrovascular Accident: No Hx Seizures: No Hx Dementia: No - Endocrine History Hx Diabetes: No Hypothyroid: Yes Hyperthyroid: No Obesity: no Endocrine History Comment: hypothyroidism - Renal History Hx Renal Disorders: No - Liver History Hx Hepatic Disorders: No - Neurological & Psychiatric Hx Hx Neurological and Psychiatric Disorders: No - Cancer History Hx Cancer: No - Congenital Disorder History Hx Congenital Disorders: No - GI History GERD: no Hx Gastrointestinal Disorders: Yes Gastrointestinal History Comment: nsaids and iron supplements gave her diarrhea and upset stomach - Other Health History Other Health History: glaucoma. wears glasses. urticaria. hives of unknown origin- nothing really helps - Chronic Pain History Chronic Pain: Yes (left knee) - Surgical History Prior Surgeries: 12/05/16 left shoulder i&d with Dr. Gann. cataract surgeries- bilaterally. tonsillectomy. hysterectomy ANE Review of Systems Review of Systems: - Exercise capacity METS (RN): 4 METS ANE Patient History - Allergies Allergies/Adverse Reactions: adhesive tape Allergy (Verified 12/16/18 12:25) Rash amoxicillin Allergy (Verified 12/16/18 12:25) GI Upset NSAIDS (Non-Steroidal Anti-Inflamma Adverse Reaction (Verified 12/24/18 11:24) Abdominal Pain - Home Medications Home Medications: Aspirin [Aspirin 81mg (*)] 81 mg PO DAILY 12/12/18 [Last Taken Unknown] C/E/Zn/Cu/OM3/DHA/EPA/LUT/ZEAX [Preservision Areds 2 Softgel] 2 each PO DAILY [Last Taken 12/10/18] Cholecalciferol Vit D3 [Vitamin D3 2000 units tab (OTC)] 2,000 units PO DAILY [Last Taken 12/10/18] Dorzolamide/Timolol [Cosopt (*)] 1 drops EACHEYE BID 12/12/18 [Last Taken Unknown] Doxepin HCl [SINEquan 10 MG (*)] 10 mg PO HS 12/12/18 [Last Taken Unknown] Estradiol [Estradiol 1 MG (*)] 1 mg PO DAILY 12/12/18 [Last Taken Unknown] Ferrous Sulfate [Ferrous Sulf 325 MG (*)] 325 mg PO DAILY 12/12/18 [Last Taken 12/10/18] Latanoprost 0.005% [Xalatan 0.005% (*)] 1 drops RTEYE HS 12/12/18 [Last Taken Unknown] Levothyroxine [Synthroid 50 mcg (*)] 50 mcg PO DAILY06 12/12/18 [Last Taken Unknown] [place]-3 Fatty Acids [Fish Oil 1000 mg (*)] 2,000 mg PO DAILY 12/12/18 [Last Taken 12/10/18] predniSONE [Aurora] 2 mg PO DAILY 12/12/18 [Last Taken Unknown] - Anes Hx Anes Hx: no prior problems - Smoking Hx Smoking Status: Former smoker - Alcohol Use Alcohol Use: Other (1 drink/day) - Family Anes Hx Family Anes Hx: none Family Hx Anesthesia Complications: none ANE Labs/Vital Signs - Vital Signs Height: 165.1 cm Weight: 56.699 kg ANE Physical Exam - Airway Neck exam: decreased ROM Mallampati Score: Class 3 Mouth exam: normal dental/mouth exam - Pulmonary Pulmonary: clear to auscultation - Cardiovascular Cardiovascular: regular rate and rhythym - ASA Status ASA Status: III ANE Anesthesia Plan Anesthesia Plan: spinal Regional Anesthesia: adductor canal FNB
[2018-12-24] MEDS ORDERED: BUPIVACAINE 0.5% 30 ML SDV ONE (10:14)
[2018-12-24] MEDS: DEXAMETHASONE 4 MG/ML VIAL IVP ONE ×2 (10:52→11:44)
[2018-12-24] MEDS ORDERED: fentaNYL 100 MCG/2 ML INJ ONE (10:58)
[2018-12-24] MEDS ORDERED: PROPOFOL 200 MG/20 ML VIAL ONE ×2 (10:58→11:45)
[2018-12-24] MEDS ORDERED: VANCOMYCIN 1 GM VIAL ONE (11:23)
[2018-12-24] MEDS ORDERED: ROPIVACAINE HCL 150 MG/30 ML INJ ONE (11:38)
[2018-12-24] MEDS ORDERED: clonIDINE 1 MG/10 ML VIAL EP ONE (11:38)
[2018-12-24] MEDS ORDERED: fentaNYL 100 MCG/2 ML INJ IVP PRN (11:44)
[2018-12-24] MEDS ORDERED: NALOXONE HCL 0.4 MG/ML INJ IVP PRN (11:44)
[2018-12-24] MEDS ORDERED: HYDROmorphONE/DILAUDID 1 MG/ML INJ IVP PRN (11:44)
[2018-12-24] MEDS ORDERED: BISACODYL 10 MG SUPP PR PRN (13:22)
[2018-12-24] MEDS ORDERED: TEMAZEPAM 15 MG CAP PO PRN (13:22)
[2018-12-24] MEDS ORDERED: LACTULOSE 20 GM/30 ML UDCUP PO PRN (13:22)
[2018-12-24] MEDS ORDERED: diphenhydrAMINE 25 MG CAP PO PRN (13:22)
[2018-12-24] MEDS ORDERED: ONDANSETRON 4 MG/2 ML VIAL IVP PRN (13:22)
[2018-12-24] MEDS ORDERED: CYCLOBENZAPRINE 10 MG TAB PO PRN (13:22)
[2018-12-24] MEDS ORDERED: PROMETHAZINE HCL 25 MG SUPPR PR PRN (13:22)
[2018-12-24] MEDS ORDERED: ONDANSETRON DISINTEGRATING 4 MG TAB PO PRN (13:22)
[2018-12-24] MEDS ORDERED: METOCLOPRAMIDE 10 MG/2 ML VIAL IVP PRN (13:22)
[2018-12-24] MEDS ORDERED: DIPHENOXYLATE/ATROPINE LOMOTIL 1 TAB PO PRN (13:22)
[2018-12-24] MEDS ORDERED: POLYETHYLENE GLYCOL 3350 17 GM PKT PO PRN (13:22)
[2018-12-24] MEDS ORDERED: PROMETHAZINE HCL 25 MG/ML INJ IVP PRN (13:22)
[2018-12-24] MEDS ORDERED: MAGNESIUM HYDROXIDE 30 ML UDCUP PO PRN (13:22)
[2018-12-24] MEDS ORDERED: HYDROCODONE/APAP 5/325 TAB PO PRN (13:25)
[2018-12-24] MEDS ORDERED: LR 1,000 ML IV SCH (13:30)
--- NOTE | 2018-12-24 13:31 | POSTOPPROG ---
Post Op Note Date of Operation: 12/24/18 Surgeon: Joana Castelan Editorial Project Manager: Mary Watson PAC Anesthesiologist: Dr. Ramses Gonzalez Anesthesia: Spinal, Other (Specify) (adductor canal block) Pre-op Diagnosis: left knee OA Post-op Diagnosis: same Indication: left knee pain Procedure: LTKA, robot assisted Findings: severe OA of left knee Inf/Abcess present in the surg proc area at time of surgery?: No EBL: 50-100
--- NOTE | 2018-12-24 13:47 | POSTANESTH ---
Post Anesthetic Evaluation Cardiovascular Status: Similar to Pre-Op Cond Respiratory Status: Normal, Stable Level of Consciousness/Mental Status: Can Participate in Eval Pain Control: Adequate, Prn Tx Ordered Nausea/Vomiting Control: Adequate, Prn Tx Ordered Complications Possibly Related to Anesthesia: None Noted
--- NOTE | 2018-12-24 15:03 | PDMN ---
Medical Necessity Medical necessity: Pt meets IP criteria per PA; est los >2 mn s/p L TKA (cpt 98024); recommend IP due to advanced age, anemia, hx cellulitis & pain control; per order 12/24/18
--- NOTE | 2018-12-24 15:31 | SOAPPROG ---
SOAP Progress Note Assessment/Plan: Assessment: s/p left TKA - procedure earlier this morning Plan: Begin d/c planing - likely home tomorrow, will have support of family Continue PT efforts - WBAT, ROM but limit knee flexion to 90 degrees until POD 5 -7 Continue VTE ppx - aspirin, SCDs, MARGOTH armendariz Continue oral pain medication - oxycodone, tylenol Subjective: Patient states she is doing good, currently her legs feel numb. She is hoping to go home tomorrow, she will have support from family members and friends. She denies SOB, CP, fever, chills. Objective: Vital Signs Temp Pulse Resp BP Pulse Ox 36.7 C 57 L 17 143/70 H 99 12/24/18 14:40 12/24/18 14:40 12/24/18 14:40 12/24/18 14:40 12/24/18 14:40 12/23/18 12/24/18 12/25/18 05:59 05:59 05:59 Intake Total 590 Output Total 610 Balance -20 Patient resting in bed, no acute distress. LLE: Wound dressings are clean, dry and intact. Lower leg compartments are soft and nontender. She is unable to actively DF or PF the left foot or great toe at this time secondary to spinal anesthesia/nerve block. Capillary refill < 2 seconds in all toes. ICD10 Worksheet Patient Problems: Problems Problem Status Onset Unilateral primary osteoarthritis, left knee Acute Cellulitis and abscess of leg Acute
[2018-12-24] MEDS: ceFAZolin 2 GM/DEXTROSE 100 ML IV SCH (18:51)
[2018-12-24] MEDS ORDERED: DOXEPIN HCL 10 MG CAP PO SCH (21:00)
[2018-12-24] MEDS ORDERED: LATANOPROST 0.005% 2.5 ML OPHT DROPS RTEYE SCH (21:00)
[2018-12-24] MEDS: ASPIRIN 81 MG CHEWABLE TAB PO SCH (21:22)
[2018-12-24] MEDS: FAMOTIDINE 20 MG TAB PO SCH (21:22)
[2018-12-24] MEDS: SENNOSIDES/DOCUSATE SODIUM TAB PO SCH (21:26)
[2018-12-24] MEDS: DORZOLAMIDE EACHEYE SCH (22:15)
[2018-12-24] MEDS: TIMOLOL EACHEYE SCH (22:15)
[2018-12-25] MEDS: ceFAZolin 2 GM/DEXTROSE 100 ML IV SCH (02:08)
[2018-12-25] MEDS ORDERED: LEVOTHYROXINE 50 MCG TAB PO SCH (06:00)
--- NOTE | 2018-12-25 07:17 | SOAPPROG ---
SOAP Progress Note Assessment/Plan: Assessment: 83 year old female s/p left TKA, TAPAN assist - POD 1 Doing well Anemia - expected initially post-op, asymptomatic, continue to monitor Plan: Continue d/c planing - patient doing better, possible home today, will have support of family. I would like to speak with her daughters first. Continue PT efforts - WBAT, ROM but limit knee flexion to 90 degrees until POD 5 -7. She needs to be cleared by PT prior to d/c Continue VTE ppx - aspirin, SCDs, MARGOTH armendariz Continue oral pain medication - Vicodin, Tylenol - I educated the patient on why she should not take Vicodin and Tylenol together. She verbalized understanding of this. States she does not feel that she needs to take Vicodin at this time. Subjective: Patient states she is feeling ok, pain is tolerable. She is thinking about home today, but would like to see how she does in PT first. She denies SOB, CP, fever and chills. Objective: Vital Signs Temp Pulse Resp BP Pulse Ox 37.0 C 66 16 132/69 H 95 12/25/18 04:00 12/25/18 04:00 12/25/18 04:00 12/25/18 04:00 12/25/18 04:00 Laboratory Results 12/25/18 04:54 12/25/18 04:54 12/24/18 12/25/18 12/26/18 05:59 05:59 05:59 Intake Total 690 Output Total 1210 Balance -520 Patient resting in bed, no acute distress. LLE: Wound dressings are clean, dry and intact. Lower leg compartments are soft and nontender. She can actively DF and PF left foot and great toe against resistance. Grossly NVI distally. ICD10 Worksheet Patient Problems: Problems Problem Status Onset Unilateral primary osteoarthritis, left knee Acute Cellulitis and abscess of leg Acute
[2018-12-25] MEDS: SENNOSIDES/DOCUSATE SODIUM TAB PO SCH (08:55)
[2018-12-25] MEDS: ASPIRIN 81 MG CHEWABLE TAB PO SCH (08:55)
[2018-12-25] MEDS: predniSONE 1 MG TAB PO SCH ×2 (08:55→09:32)
[2018-12-25] MEDS: ACETAMINOPHEN 325 MG TAB PO PRN ×2 (08:55→13:07)
[2018-12-25] MEDS: FAMOTIDINE 20 MG TAB PO SCH (08:55)
[2018-12-25] MEDS ORDERED: FERROUS SULFATE 325 MG TAB PO SCH (09:00)
[2018-12-25] MEDS: DORZOLAMIDE EACHEYE SCH (09:03)
[2018-12-25] MEDS: TIMOLOL EACHEYE SCH (09:03)
--- NOTE | 2018-12-25 09:19 | GOP ---
[f rep st] OPERATIVE REPORT DATE OF OPERATION: 12/24/2018 SURGEON: Michael Castelan MD MOVER: Cyn Watson PA-C. ANESTHESIA: Spinal. PREOPERATIVE DIAGNOSIS: Left knee osteoarthritis. POSTOPERATIVE DIAGNOSIS: Left knee osteoarthritis. PROCEDURE PERFORMED: Left total knee arthroplasty with computer navigation, robotic assist. FINDINGS: ESTIMATED BLOOD LOSS: 30 cc. INDICATIONS: The patient is an 83-year-old female with severe and progressive pain and deformity of the left knee unresponsive to conservative care. The risks and benefits of surgical intervention were explained in detail. DESCRIPTION OF PROCEDURE: The patient was brought to the operative room and placed on the table in the supine position. Spinal anesthesia was induced without difficulty. A pneumatic tourniquet was applied about the left proximal thigh, and the leg was prepped and draped in a sterile fashion. The leg berumen was applied. After exsanguination by elevation the tourniquet was inflated to 250 mmHg. Incision was made anterior medial from the tibial tuberosity to a point 2 cm proximal to the superior pole of the patella. Medial parapatellar arthrotomy was carried out from the superior pole of the patella and posteriorly in line with the fibers of the Type II VMO. The medial collateral ligament was elevated and the infrapatellar fat pad was resected. Pathology: Severe medial and patellofemoral osteoarthritis. The patella was everted and the articular surface was excised. A 32 mm patellar button was placed. Attention was turned first to the distal aspect of the femur. After exposure of the femur, 2 half pins were placed for fixation of the femoral array. In a similar fashion, 2 pins were placed anteromedial on the tibia for fixation of the tibial array. External land marking and registration of the hip center was performed without difficulty. Internal femoral and tibial registration was carried out without difficulty and the femoral and tibial checkpoints were placed and verified for accuracy. Attention was turned to the femur. The foot print for the size 3 femoral component was cut with the saw using the [employer] robotic system and verified for accuracy against the CT based plan. In a similar fashion, the saw was used to cut the footprint for the size 3 tibial component using the REAL system and verified for accuracy against the CT based plan. The tibial articular surface was excised without difficulty, followed by the intercondylar box cut. The knee was extended and the remnants of the medial and lateral meniscus were excised. The posterior capsule was injected with ropivacaine, epinephrine and Toradol. A size 3 tibial tray was positioned. Trial reduction was then carried out. There was excellent range of motion, alignment, and stability using the 3 x 9 mm polyethylene. All trials were then removed. The joint was thoroughly irrigated and carefully dried. The cement components were implanted. The permanent 3 x 9 mm polyethylene was placed without difficulty. The tourniquet was deflated and all bleeders were coagulated. The wound was thoroughly irrigated and closed using interrupted sutures of 2-0 Vicryl for the joint capsule. The subcu was closed with 3-0 Vicryl and the skin with 4-0 Monocryl. Dermabond and Steri-Strips were applied followed by a compressive dressing. The patient was then moved from the operating room to the recovery room in good condition, having tolerated the procedure well. During removal of drapes, the patient obtained a skin tear due to her thin skin from prednisone. This was placed into a dressing. /[id number]/MODL MTDD
[2018-12-25 12:24] VITALS: BP 160/77
--- NOTE | 2018-12-25 14:18 | PDIAF ---
- Diagnosis Diagnosis: Left knee osteoarthritis Code Status: Full Code - Medication Management Discharge Medications: electronically signed and located in the Home Medication List. - Orders Services needed: Home Care, Physical Therapy, Occupational Therapy Home Care Face to Face: I certify that this patient was under my care and that I had the required [id number] encounter meeting the encounter requirements on the discharge day. My findings support the fact that the patient is homebound as defined in Home Care Face to Face Continued: CMS Chapter 7 Medicare Benefits Manual 30.1.1 , The condition of the patient is such that there exists a normal inability to leave home and consequently, leaving home would require a considerable and taxing effort. Diet Recommendation: no restrictions on diet Diet Texture: Regular Texture Diet Additional Instructions: Joint Protocol-Knee Replacement Follow up with Dr. Carlisle office as scheduled After surgery instructions: You received an adductor canal nerve block yesterday. It alleviates pain for approximately 30 hours. Once the numbness to your anterior feliz wears off, your pain will increase. Start taking narcotics even low dose narcotic pain medications as the numbness decreases the day after surgery. Take Aspirin 81mg by mouth morning and evening for 4 weeks (helps to prevent blood clots) Wear thigh high MARGOTH hose on both legs during the daytime for 2 weeks (helps to prevent blood clots and decrease swelling in the surgical leg). We recommend that you remove MARGOTH hose at night time to give your legs and skin a break. Elevate the surgical leg with the ankle above the hip several times a day. Ideally anytime you are resting throughout the day. Attempt to keep the knee straight while elevating by using the zero knee given to you at the hospital ( the blue foam). This may be painful, so please do as much as tolerated even just a minute or two several times a day will help you achieve full knee extension. Use a walker for 7-14 days Start outpatient physical therapy in 7-10 days Wear an eliane compression wrap on the knee for 3-4 days after surgery, then it is no longer needed Do exercises in the book 2-3 times a day Ice at least 3-5 times a day for 30 minutes each time, if not more often. Some patients find using the ice machine before falling asleep helps with pain overnight If you have further questions that are not addressed here, please look at the information packet handed to you at the preop appointment. Most will be answered on the FAQs, after surgery instructions and incision care pages. *IF YOU HAVE A LIFE THREATENING EMERGENCY, CALL 911. FOR NON-LIFE THREATENING ISSUES, PLEASE CALL DR. CARLISLE OFFICE FIRST. A PHYSICIAN IS TRUCK TRAILER MECHANIC 04/03. Incision/Dressing Care: You may shower tomorrow. The incision dressing is waterproof. Do not soak in water, but shower is ok. Keep the incision (beckwith) dressing clean and dry. If the incision dressing gets soiled or wet underneath, change dressing to the dressing given to you by the hospital. (beckwith dressing will turn black if drainage occurs) Remove incision dressing (beckwith one) two weeks after surgery. Leave steri strips alone. They will fall off on their own. Do not have anyone else remove the incision dressing prior to the stated recommendation (2 weeks after surgery). If there are incision concerns, contact Dr. Carlisle office. (Dr. Castelan may remove earlier if concerns arise) If incision site (beckwith dressing) has drainage call Dr. Carlisle office, . Dr. Castelan or his PAs may ask you to come into the office for further evaluation - Follow Up Care Current Providers and Referrals: Joana Castelan MD [Medical Doctor] - David Barbour MD [Primary Care Provider] - Cyn Watson PAC [Physician Coater Hand] - 01/15/19 11:15 am
--- NOTE | 2018-12-25 14:44 | PDDCSUM ---
Discharge Summary Discharge Summary: ADMISSION DIAGNOSIS: Left knee severe degenerative arthritis DISCHARGE DIAGNOSIS: Left knee severe degenerative arthritis OPERATION PERFORMED: December 24, 2018, Left total knee arthroplasty, García robot assisted. POSTOPERATIVE COMPLICATIONS: None CONDITION ON DISCHARGE: Improved HPI: The patient is n 83 year old female who has end-stage arthritis of her left knee. Clinical and radiographic features are consistent with this. Patient has failed attempts at conservative management, therefore, recommended operative left total knee replacement. DESCRIPTION OF HOSPITAL COURSE: The patient was admitted to the hospital on the morning of surgery and underwent a left total knee arthroplasty, García robot assisted. Postoperatively, patient was treated with multimodal DVT prophylaxis, including aspirin 81 mg BID, SCDs and MARGOTH hose. Patient was seen by PT and made good progress with ambulation and stairs. On the first post-operative day the patients H&H was 10.7/30.5. Patient was able to void spontaneously. At the time of discharge, patient was afebrile, wound was clean and dry. Patient is walking with a walker. DISPOSITION: The patient is discharged home and she may schedule an appointment with [facility] or she may just wait to start her outpatient PT on January 02, 2019. She will have the support of her daughters. Patient may progress to full weightbearing on the left lower extremity as tolerated. MARGOTH stockings for 2 weeks during the day time. Aspirin 81 mg BID for 4 weeks. Patient has prescriptions for Vicodin for pain control. She may continue to take Tylenol for pain. The patient will be seen by Dr. Carlisle office in approximately 3 weeks. If there are any problems, patient is to call Dr. Carlisle office.
== END 2018-12-25 15:57 | disposition home health service (06) | DRG 470 ==
LOC: F1N 08:56 → F3N 14:31
PROVIDERS: ADMIT Orthopaedic Surgery; ATTEND Orthopaedic Surgery
PROC: 8E0Y0CZ Robotic Assisted Procedure of Lower Extremity, Open Approach (ICD-10-PCS; principal; 2018-12-24 11:00)
PROC: 8E0YXBZ Computer Assisted Procedure of Lower Extremity (ICD-10-PCS; principal; 2018-12-24 11:00)
PROC: 0SRD0JA Replacement of Left Knee Joint with Synthetic Substitute, Uncemented, Open Approach (ICD-10-PCS; principal; 2018-12-24 11:00)
DX: M17.12 Unilateral primary osteoarthritis, left knee (principal); D64.9 Anemia, unspecified; E03.9 Hypothyroidism, unspecified; H40.9 Unspecified glaucoma; Z87.891 Personal history of nicotine dependence
CPT/HCPCS: 97116-GP; 97161-GP; C1713; J0171; J0690; J0735; J1100; J1885; J2704; J2795; J3010; J3370; J7512